=== PATIENT | female | born 1960 | race Caucasian/White ===

== ENCOUNTER → 2020-06-13 10:39 | Outpatient (CLI) | payer BC, SELFPAY ==
--- NOTE | ~2020-06-13 | MR_ITS ---
EXAMINATION: MR cervical spine wo/w con EXAM DATE: 06/13/2020 11:41 INDICATION: Cervicalgia. Unsteady gait. Previous neck surgery 2004. TECHNIQUE: Multi-sequential, multiplanar MR images of the cervical spine were obtained without contra st. Axial T2, axial T2 MERGE sequence. Sagittal T1, T2, T2 fat saturation images also obtained. Axi al T1 weighted sequence. Patient was then injected with 20 mL Multihance intravenous contrast and re imaged. Postcontrast axial and sagittal T1-weighted fat saturation sequences were obtained. There ar e no prior studies for comparison. FINDINGS: There is anterior and interbody fusion C4-7. There is increased T2 cord signal at the C3-4 level in the right side of the spinal cord, at a level where there is moderate to severe central can al stenosis and cord compression. No enhancement of this region. Could be myelomalacia or cord edema. At the C4-5 level there is increased cord signal which is consistent with myelomalacia. There is mod erate disc disease at C3-4, mild to moderate at C7-T1. The vertebral bodies are aligned in the AP dimension. Cervicomedullary junction is normal in appearan ce. There are no suspicious marrow signal abnormalities. Paraspinal soft tissue is unremarkable. Ther e are no areas of abnormal enhancement on the post contrast images. Level by level evaluation: C2-C3: Disc does not extend beyond the endplate margin. Uncovertebral joint arthropathy: None. Facet joint arthropathy: Moderate bilateral. Neural foraminal stenosis: No stenosis. Central canal stenosis: No stenosis. C3-C4: There is a moderate diffuse disc bulge. Uncovertebral joint arthropathy: Mild to moderate bilateral. Facet joint arthropathy: Severe left, moderate right . Ligamentum flavum enlargement . Neural foraminal stenosis: Severe left, moderate to severe right. Central canal stenosis: Moderate to severe. Central canal measures 4-5 mm in mid sagittal AP diameter. C4-C5: This level is fused. Uncovertebral joint arthropathy: Mild bilateral. Facet joint arthropathy: Mild to moderate bilateral. Neural foraminal stenosis: Mild right. Central canal stenosis: No stenosis. C5-C6: This level is fused. Uncovertebral joint arthropathy: Mild bilateral. Facet joint arthropathy: Mild to moderate bilateral. Neural foraminal stenosis: Mild bilateral. Central canal stenosis: No stenosis. C6-C7: This level is fused. Uncovertebral joint arthropathy: Moderate bilateral. Facet joint arthropathy: Mild bilateral. Neural foraminal stenosis: Mild to moderate bilateral. Central canal stenosis: No stenosis. C7-T1: There is a small central protrusion/extrusion with cephalad migration. Uncovertebral joint arthropathy: Moderate to severe left, moderate right. Facet joint arthropathy: Moderate left, mild to moderate right. Neural foraminal stenosis: Moderate left, mild right. Central canal stenosis: Mild to moderate. Central canal measures 6 mm in mid sagittal AP diameter . IMPRESSION: 1. C3-4 cord compression with small region of increased T2 signal, could be edema. Consider steroid treatment, neurosurgical evaluation. 2. C4-7 cervical fusion. 3. Spondylosis. I discussed cord compression with JOAN Gunn at 06/13/2020 15:38 GASKET INSPECTOR . Reviewed, dictated and finalized at location A. ET INSPECTOR IMPRESSION: 1. C3-4 cord compression with small region of increased T2 signal, could be ed staci. Consider steroid treatment, neurosurgical evaluation. 2. C4-7 cervical fusion. 3. Spondylosis. I discussed cord compression with JOAN Gunn at 06/13/2020 15:38 GASKET INSPECTOR .
[2020-06-13 11:11] LABS: Estimated Glomerular Filt Rate > 60
== END ==
PROVIDERS: PCP Physician Assistant Medical; Visit Provider Physician Assistant Medical
DX: M54.2 Cervicalgia (principal); G95.20 Unspecified cord compression; Z98.1 Arthrodesis status; M47.812 Spondylosis without myelopathy or radiculopathy, cervical region
CPT/HCPCS: 72156; A9577

== ENCOUNTER 2023-09-14 13:15 | Outpatient (CLI) | payer OTHER, BC, SELFPAY ==
--- NOTE | ~2023-09-14 | US_ITS ---
EXAMINATION: US soft tissue UE LT DATE: 09/14/2023 13:56 INDICATION: Left-sided olecranon bursitis. TECHNIQUE: Multiple grayscale and Doppler ultrasound images of the left upper limb were obtained. COMPARISON: Left elbow radiographs 08/08/2023 FINDINGS: There is soft tissue swelling overlying the olecranon with mixed echogenicity. IMPRESSION: 1. Soft tissue swelling over the olecranon, consistent with bursitis. No definite drainable fluid. Reviewed, dictated and finalized at location A. IMPRESSION: 1. Soft tissue swelling over the olecranon, consistent with bursitis. No defini te drainable fluid.
== END 2023-09-14 13:16 | disposition home or self-care (01) ==
PROVIDERS: PCP Physician Assistant Medical; Visit Provider Plastic Surgery
DX: M70.22 Olecranon bursitis, left elbow (principal); M79.89 Other specified soft tissue disorders
CPT/HCPCS: 76882

== ENCOUNTER 2023-09-22 10:18 | Outpatient (CLI) | payer OTHER, SELFPAY ==
[2023-09-22 10:58] LABS: Anion Gap 6 mmol/L (4-12); Blood Urea Nitrogen 12 mg/dL (7-17); Calcium 9.6 mg/dL (8.4-10.2); Carbon Dioxide 28 mmol/L (22-30); Chloride 104 mmol/L (98-107); Estimated Glomerular Filt Rate > 60; Glucose 153 mg/dL (65-110); Potassium 4.1 mmol/L (3.4-5.0); Sodium 138 mmol/L (137-145)
== END 2023-09-22 10:19 | disposition home or self-care (01) ==
LOC: ANHSURGERY 10:24
PROVIDERS: Anesthesiology; PCP Physician Assistant Medical; Visit Provider Plastic Surgery
DX: Z01.818 Encounter for other preprocedural examination (principal); Z79.899 Other long term (current) drug therapy
CPT/HCPCS: 36415; 80048

== ENCOUNTER 2023-09-28 00:33 | Day surgery (SDC) | payer OTHER, SELFPAY ==
[2023-09-20 12:37] VITALS: BMI 35.9
--- NOTE | 2023-09-20 12:45 | PC.NURSE ---
Report to the Outpatient Waiting Room, entrance under the green pavilion located off [facility], at time 12:00 on date 09/28/23. Planned Procedure Time: 2:00. Time changes happen often and if your time is changed the preop area will call you the afternoon before. - You and your visitor will be asked to self-screen and do not enter if you have any COVID symptoms. - A mask is optional within the hospital at this time. Patients may have clear liquids (water, carbonated beverages, clear teas, apple juice) until 8 hours prior to surgery with a maximum of 20 ounces. - No food from midnight until time of surgery Take the following medications with a SIP of water the morning of surgery: AMLODIPINE, METOPROLOL DO NOT STOP ANY OF YOUR OTHER PRESCRIPTION MEDICATIONS PRIOR TO SURGERY ?EXCEPT THE FOLLOWING Medications to discontinue per physician: VITAMINS/SUPPLEMENTS Date to take last dose: 09/24/23 Please no make-up, nail hungarian, hairspray, perfume, deodorant, or body powder the day of surgery. No jewelry (including any body piercings) or valuables the day of surgery, leave them at home. Please take a shower or bath the night before, or the morning of, surgery with an antibacterial soap. Wear comfortable, loose fitting clothing. - Jewelry must be removed prior to entering the operating room. Rings and piercings that are not removed may be cut off. - The hospital will not accept responsibility for valuables. - Please leave all valuables, including medications, at home the day of surgery. If you are going home after surgery, a licensed rolloff truck driver must drive you home. - NO public transportation without another adult if you receive anesthesia. - We recommend that an adult stay with you for 24 hours following discharge. - We also recommend that you do not drive, make important decision, drink alcoholic beverages, or take any drugs that were not prescribed by your health care provider for at least 24 hours after your discharge time. Follow any additional instructions given to you from your surgeon. If you or anyone in your household have experienced Covid symptoms in the past week, please notify your surgeon or the nurse liaison at the phone number below for possible testing. Telephone instructions given to PT - AGNES and asked if any additional questions and then verbalized understanding. Patient advised to call surgeon office or pre surgery nurse liaison [phone] if any additional questions.
--- NOTE | 2023-09-28 07:07 | P.OP_ITS ---
Procedure Note - Detailed Date of Procedure 09/28/23 Pre-op Diagnosis left elbow mass/bursitis Post-op Diagnosis Same Procedure Performed left olecranon bursectomy Surgeon Liane Kinsey MD Cancer Registry Coordinator Joan Tatum PA-C Anesthesia MAC Description of Procedure INFORMED CONSENT: The patient was seen and examined and marked in the pre-op area.? The patient signed the consent form. PROCEDURE IN DETAIL:The patient taken back to OR on the stretcher in supine position. Time out performed with anesthesia, surgeon and staff agreeing on patient's name site and surgery to be performed SCDs were placed on the lower extremities and inflated. A tourniquet was placed on {left} upper extremity and antibiotics given IV After anesthesia administered sedation I injected {8}cc 1%lido with epi and 0.5% marcaine plain at the operative site The?{left upper extremity}?was prepped and draped in sterile fashion the??{left upper extremity} was? exsanguinated with Esmarch bandage and tourniquet inflated to 250mmHg I proceded with making an ellipictical incision around the affected left appeals court associate justice ior elbow wound and eschar through skin and dermis. I used bovie to excise this wound and circumferentially dissect through subq tissue and affected mass/bursae. The triceps tendon was identified and protected during procedure. After all inflammatory tissue and mass was excised I irrigated with normal saline and proceeded with 2-0 vicryl to close a small opening in capsule. 2-0 and 3-0 vicryl was used for dermal closure. excess skin proximally and distally was excised sharply to reduce dog ear formation. 3-0 nylon was used for skin. Length of closure was 5cm A dressing of xeroform, 4x4, cinthia, and a posterior elbow splint was applied for patient safety, security, and comfort and secured with an madhu bandage after the tourniquet was let down noting the hand was warm and well perfused. The patient was then awaken from anesthesia and transferred to the recovery room in stable condition.? Complications - none EBL- 0cc Disposition - home in stable conditions Joan Tatum PA-C was essential for positioning, retractiion, closure and dressing placement [facility] [place] Billing Surgery - Charge Forward: Surgery Billing ([id number] for joan)
--- NOTE | 2023-09-28 07:07 | WPDHPUPDATE1 ---
History and Physical Update Update Date/Time: 09/28/23 07:07 Patient seen and examined in pre-operative holding area. No interval change in medical history or symptoms. Patient recalls previous discussion of benefits and alternatives to procedure. Continues to desire to proceed with left elbow mass/bursa excision. Reviewed procedure, post-op expectations and risks including but not limited to bleeding, infection, injury to tendon/nerve/vessel, decreased hand function, stiffness, recurrence, RSD, no change or worsening of symptoms. I discussed the possible use of assistants and their participation in the case. Patient stated understanding and signed the consent form wishing to proceed.
[2023-09-28 09:58] VITALS: BP 136/81; PULSE 59; RESP 16; TEMP 36.8; O2SAT 98
[2023-09-28] MEDS: LACTATED RINGERS 1,000 ML 30 ML IV CONT (10:30)
--- NOTE | 2023-09-28 11:02 | WPDANESEPPF ---
Anes - Initial Pre Proc Eval Procedure: Operation Date: 09/28/23 12:00 Proposed Procedures p Left Olecranon Bursectomy - Liane Kinsey MD Date/Time: 09/28/23 11:02 Surgeon: Liane Kinsey MD Pre Op Diagnosis: Olecanon Bursitis Left Elbow Patient Data Age: 63 Gender: F Height: 1.78 m Weight: 113.1 kg Last Vital Signs Temp 98.3 F 09/28/23 09:58 Pulse 59 L 09/28/23 09:58 Resp 16 09/28/23 09:58 BP 136/81 09/28/23 09:58 Pulse Ox 98 09/28/23 09:58 O2 Del Method Room Air 09/28/23 09:58 Allergies Allergy/AdvReac Type Severity Reaction Status Date / Time No Known Allergies Allergy Verified 09/28/23 10:38 Home Medications Medication Instructions Recorded Confirmed Type amlodipine 10 mg tablet 10 mg PO DAILY 06/22/22 09/20/23 History cyanocobalamin (vitamin B-12) 500 500 mcg PO DAILY 06/22/22 09/20/23 History mcg tablet hydrochlorothiazide 12.5 mg tablet 12.5 mg PO DAILY 06/22/22 09/20/23 History metoprolol succinate 50 mg 50 mg PO DAILY 06/22/22 09/20/23 History tablet,extended release 24 hr multivitamin 1 tablet PO DAILY 06/22/22 09/20/23 History tramadol 50 mg tablet 50 mg PO Q6H PRN pain #8 tabs 09/28/23 Rx Patient hx anesthesia problems: none Family hx anesthesia problems: none Results Review: All pre-operative results and documents have been reviewed as part of the pre-operative evaluation. [facility] Past Medical History Medical History Diabetes Hypertension Pericardial effusion s/p Pericardiocentesis September 2021 Pulmonary nodule Vitamin B12 deficiency Surgical History Surgical History History of ankle surgery right ankle cyst removal History of 05/1996, 05/1998 History of cervical spinal surgery 08/15/20 plates History of hand surgery 10/29/20 Right thumb fx-orif Hx of LASIK Family History Family History Sibling Carcinoma of colon Social History Social History Smoking status: Never smoker Alcohol intake: current Drinks per week: 6 Substance use: never Substance use type: does not use Lack of Transportation: No Lack of Food: Never True Current Housing: I Have Housing Concerned About Future Housing: No Difficulty Paying Gas/Electric Bills: No Difficulty Paying for Meds: No Currently Unemployed: No Education: Associate Degree Difficulty w/ Childcare or Family Care: No Living arrangements: with family Occupation/Education: retired 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 ) Neurological: alert and oriented Last oral intake: >/= 8 hours ASA classification: II Emergent: no Anesthetic plan: proceed Anesthesia type and monitoring: general LMA and standard monitoring Results Review: All pre-operative results and documents have been reviewed as part of the pre-operative evaluation. Informed Consent: The patient's anesthetic plan and its attendant risks and benefits were discussed with the patient/family/POA. Questions were solicited and answers provided to the satisfaction of the patient/family/POA.
[2023-09-28] MEDS: ceFAZolin 2 GM/D5W 50 ML 2 GM/50 ML BAG IVPB (11:12)
[2023-09-28] MEDS: LIDO 1%/EPINEPHRINE 1:100,000 50 ML VIAL 6 ML INFILTRATE (11:26)
[2023-09-28] MEDS: BACITRACIN OINTMENT 15 GM TUBE 1 APPLIC TOPICAL (11:38)
[2023-09-28 11:44] VITALS: BP 103/63; PULSE 65; RESP 16; O2SAT 94
[2023-09-28] MEDS: oxyCODONE HCL (*CRX) 5 MG TAB IR PO (12:14)
[2023-09-28 12:15] VITALS: BP 133/71; PULSE 60; RESP 16
[2023-09-28 12:42] VITALS: BP 125/68; PULSE 50; RESP 16
== END 2023-09-28 12:50 | disposition home or self-care (01) ==
PROVIDERS: PCP Physician Assistant Medical; Visit Provider Plastic Surgery
PROC: (CPT 24105; principal; 2023-09-28 12:00)
DX: M70.22 Olecranon bursitis, left elbow (principal); E11.9 Type 2 diabetes mellitus without complications; I10 Essential (primary) hypertension; E53.8 Deficiency of other specified B group vitamins; E66.9 Obesity, unspecified; Z68.35 Body mass index [BMI] 35.0-35.9, adult
CPT/HCPCS: 24105; 88304; A9270; J0690; J2250; J2704; J3010; J7120

== ENCOUNTER 2023-12-06 11:26 | Emergency (ER) | payer BC, SELFPAY ==
--- NOTE | ~2023-12-06 | XR_ITS ---
EXAMINATION: XR chest 2V DATE: 12/06/2023 13:18 INDICATION: Worsening cough TECHNIQUE: PA and lateral views of the chest were obtained. COMPARISON: None FINDINGS: Small calcified nodule right midlung zone consistent with old granulomatous disease. No other airspac e opacities, pulmonary edema, pleural effusion or pneumothorax. The cardiomediastinal silhouette is n ormal. C4-C7 anterior spinal fusion with anterior plate-screw fixation. More cephalad partially visua lized posterior cervical spinal fusion with bilateral vertical vertical mitul and lateral mass screw fi xation. Suggestion of associated cervical laminectomies. IMPRESSION: 1. No acute cardiopulmonary disease. Reviewed, dictated and finalized at location B.
[2023-12-06 11:41] VITALS: BP 123/91; PULSE 71; RESP 18; TEMP 36.4; O2SAT 99
--- NOTE | 2023-12-06 11:45 | ECG_ITS ---
Test Date: 2023-12-06 11:59:29 Measurements Intervals Breaks Rate: 58 P: -14 CO: 148 QRS: -11 QRSD: 93 T: 192 QT: 403 QTc: 396 Interpretive Statements SINUS BRADYCARDIA VOLTAGE CRITERIA FOR LVH NONSPECIFIC T-WAVE ABNORMALITY- ANTEROLATERAL LEADS BASELINE ARTIFACT- I, II, III, AVR, AVL, AVF BORDERLINE ECG No previous ECG available for comparison Electronically Signed On 12-06-2023 12:06:11 CDT by Amish Jordan D.O.
--- NOTE | 2023-12-06 13:15 | ED.SOB ---
HPI - SOB/Dyspnea General Chief Complaint: Shortness of Breath/Dyspnea Stated Complaint: sob Time Seen by Provider: 12/06/23 13:13 Source: patient Mode of arrival: ambulatory Limitations: no limitations History of Present Illness HPI Narrative: 63 years old white female drove herself to the emergency room complaining of intermittent persistent dry cough for the last 7 days associated with slight postnasal discharge, raspy voice,. Last night the cough got worse while lying down flat. History of hyper tension, is not on antiplatelets intact medication. Patient denies sick contact. Lives with [facility]. Currently patient main complaint is feeling hungry she denies any fever or chills or chest pain. Related Data Home Medications Medication Instructions Recorded Confirmed amlodipine 10 mg tablet 10 mg PO DAILY 06/22/22 09/20/23 cyanocobalamin (vitamin B-12) 500 500 mcg PO DAILY 06/22/22 09/20/23 mcg tablet hydrochlorothiazide 12.5 mg tablet 12.5 mg PO DAILY 06/22/22 09/20/23 metoprolol succinate 50 mg 50 mg PO DAILY 06/22/22 09/20/23 tablet,extended release 24 hr multivitamin 1 tablet PO DAILY 06/22/22 09/20/23 Allergies Allergy/AdvReac Type Severity Reaction Status Date / Time No Known Allergies Allergy Verified 12/06/23 09:39 Review of Systems Review of Systems: All systems reviewed & are unremarkable except as noted in HPI and below PMFSH Past Medical History Medical History Diabetes Echocardiogram abnormal History of pericarditis Hypertension Pericardial effusion s/p Pericardiocentesis September 2021 Pulmonary nodule Vitamin B12 deficiency Surgical History Surgical History History of ankle surgery right ankle cyst removal History of 05/1996, 05/1998 History of cervical spinal surgery 08/15/20 plates History of hand surgery 10/29/20 Right thumb fx-orif Hx of LASIK Family History Family History Sibling Carcinoma of colon Social History Social History Smoking status: Never smoker Alcohol intake: current Drinks per week: 6 Substance use: never Substance use type: does not use Lack of Transportation: No Lack of Food: Never True Current Housing: I Have Housing Concerned About Future Housing: No Difficulty Paying Gas/Electric Bills: No Difficulty Paying for Meds: No Currently Unemployed: No Education: Associate Degree Difficulty w/ Childcare or Family Care: No Living arrangements: with family Occupation/Education: retired 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 Gender identity (if verbalized by the patient): Female Sexual Orientation (if Verbalized by the Patient): Straight or Heterosexual Spiritual care concerns: No Exam Narrative: General appearance: Well-developed, well-nourished Skin: Normal color Head: Normocephalic, nontraumatic Eyes: Clear conjunctiva ENT: Oropharynx normal, ears normal, nose normal Neck: Supple, nontender Chest and respiratory: Airway patent, no respiratory distress, no accessory muscle use, few dry rales on the right lower lobe posteriorly Heart: Regular rate/rhythm Abdomen: Soft, nontender, no organomegaly, quiet bowel sounds Vascular: Normal peripheral pulses, normal capillary refill. Musculoskeletal: Normal range of motion, nontender back Neurologic: Alert and oriented ?3, CUTTER FIRST is normal as tested, no gross motor deficit Course Vital Signs Vital signs: Vital Signs Temperature 36.4 C L
[2023-12-06 13:59] LABS: Basophils Percent Auto 0.4 % (0.2-1.2); Eosinophils Absolute Auto 0.2 K/mm3 (0-0.3); Eosinophils Percent Auto 2.1 % (0-4.4); Hematocrit 38.5 % (37.0-47.0); Hemoglobin 13.4 g/dL (12.0-15.0); Immature Granulocyte Absolute 0.02 K/mm3 (0.00-0.031); Immature Granulocyte Percent A 0.3 % (0-0.5); Lymphocytes Absolute Auto 1.88 K/mm3 (0.9-3.2); Mean Corpuscular HGB Conc 34.8 g/dl (32-36); Mean Corpuscular Hemoglobin 32.1 pg (26-34); Mean Corpuscular Volume 92.1 fl (80-100); Mean Platelet Volume 9.5 fl (7.4-10.4); Monocytes Absolute Auto 0.7 K/mm3 (0.1-0.6); Neutrophils Absolute Auto 4.8 K/mm3 (1.3-6.7); Neutrophils Percent Auto 63.2 % (45.5-73.1); Platelet Count Result 268 k/mm3 (150-375); Red Blood Count 4.18 M/mm3 (4.2-5.4); Red Cell Distribution Width 12.4 % (11.5-14.5); White Blood Count 7.5 K/mm3 (4.5-10.0)
[2023-12-06 14:08] LABS: INR 1.1; Prothrombin Time 14.2 Seconds (11.1-14.7)
[2023-12-06 14:09] LABS: Partial Thromboplastin Time 26.5 Seconds (22.3-36.8)
[2023-12-06 14:36] LABS: Influenza A QL RT-PCR Negative (Negative); Influenza B QL RT-PCR Negative (Negative); RSV RNA, RT-PCR Negative (Negative); SARS-CoV-2 RNA PCR Negative (Negative)
[2023-12-06 14:52] VITALS: BP 137/82; PULSE 60; PULSE 67; RESP 18; O2SAT 100; O2SAT 99
[2023-12-06 15:04] LABS: Alanine Aminotransferase 35 U/L (6-35); Albumin Level 4.4 g/dL (3.5-5.1); Alkaline Phosphatase 65 U/L (38-126); Anion Gap 7 mmol/L (4-12); Aspartate Amino Transferase 48 U/L (14-36); Bilirubin,Total 0.7 mg/dL (0.2-1.3); Blood Urea Nitrogen 11 mg/dL (7-17); Calcium 9.5 mg/dL (8.4-10.2); Carbon Dioxide 29 mmol/L (22-30); Chloride 104 mmol/L (98-107); Estimated CRCL calculation 87 ml/min; Estimated Glomerular Filt Rate > 60; Glucose 110 mg/dL (65-110); Sodium 140 mmol/L (137-145)
[2023-12-06 15:15] LABS: NT Pro B Type Natriuretic Pept 163 pg/mL (19.9-100); Troponin I < 0.012 ng/mL (0.000-0.034)
[2023-12-06 16:20] VITALS: BP 124/93; PULSE 65; RESP 18; O2SAT 98
== END 2023-12-06 16:21 | disposition home or self-care (01) ==
PROVIDERS: Emergency Provider Emergency Medicine; PCP Physician Assistant Medical
DX: J06.9 Acute upper respiratory infection, unspecified (principal); Z20.822 Contact with and (suspected) exposure to COVID-19; I10 Essential (primary) hypertension; E11.9 Type 2 diabetes mellitus without complications; E53.8 Deficiency of other specified B group vitamins; Z79.899 Other long term (current) drug therapy; R00.1 Bradycardia, unspecified; R94.31 Abnormal electrocardiogram [ECG] [EKG]; R06.02 Shortness of breath
CPT/HCPCS: 36415; 71046; 80053; 83880; 84484; 85025; 85610; 85730; 87637; 93005; 99284

== ENCOUNTER 2024-06-23 13:49 | Outpatient (CLI) | payer BC, SELFPAY ==
--- NOTE | ~2024-06-23 | MR_ITS ---
EXAMINATION: MR knee RT wo con DATE: 06/23/2024 14:34 INDICATION: M25.561 - Pain in right knee TECHNIQUE: Magnetic resonance imaging (MRI) of the right knee was performed without intravenous contr ast. Sequences included axial PD-weighted FS FSE, coronal PD-weighted FSE and PD-weighted FS FSE, sag ittal PD-weighted FSE, and sagittal T2-weighted FS FSE. COMPARISON: X-ray right knee 05/22/2024 FINDINGS: Medial compartment: Vertical tear at the meniscal root ligament. Apical tear of the meniscal body. Moderate cartilage thi nning. Moderate osteophytosis. Lateral compartment: Horizontal cleavage type tear of the anterior horn and body, extending into a radial tear of the post erior horn. Moderate diffuse cartilage thinning. Moderate osteophytosis. Patellofemoral compartment: Moderate diffuse cartilage thinning. Full-thickness cartilage fissure over the lateral femoral groove . Retinacula intact. Ligaments and tendons: The ACL, PCL, MCL, and LCL are intact. Remaining flexor and extensor tendons are intact. Fluid: Moderate volume of subcutaneous fluid anterior to the patella and patellar tendon. Moderate sized Dilma er's cyst. Moderate volume joint fluid. Osseous/other: No suspicious focal or diffuse marrow signal. IMPRESSION: Tears of the medial and lateral menisci, as detailed above. Moderate tricompartmental osteoarthritis. Prepatellar bursitis. Moderate volume Holman's cyst. Moderate right knee joint effusion. Reviewed, dictated and finalized at location K. TIC INSTRUCTOR
== END 2024-06-23 13:50 | disposition home or self-care (01) ==
PROVIDERS: PCP Physician Assistant Medical; Visit Provider Physician Assistant Medical
DX: S83.281D Other tear of lateral meniscus, current injury, right knee, subsequent encounter (principal); S83.241D Other tear of medial meniscus, current injury, right knee, subsequent encounter; X58.XXXD Exposure to other specified factors, subsequent encounter
CPT/HCPCS: 73721